=== PATIENT | male | born 1965 | race Hispanic/Latino ===

== ENCOUNTER → 2017-03-03 | Outpatient (CLI) | payer OTHER ==
[~2017-03-03] MED LIST: LIDOCAINE VISC 2% SOLN 15 ML UDC ONE
== END ==
LOC: WCC 09:56
PROVIDERS: ATTEND Family Medicine Adult Medicine
DX: T86.821 Skin graft (allograft) (autograft) failure (principal); E11.65 Type 2 diabetes mellitus with hyperglycemia; S81.802A Unspecified open wound, left lower leg, initial encounter; R60.0 Localized edema; I87.2 Venous insufficiency (chronic) (peripheral); B96.89 Other specified bacterial agents as the cause of diseases classified elsewhere; I10 Essential (primary) hypertension; W20.8XXA Other cause of strike by thrown, projected or falling object, initial encounter

== ENCOUNTER → 2017-03-19 | Outpatient (CLI) | payer OTHER | LOC: WCC 10:02 | PROVIDERS: ATTEND Family Medicine Adult Medicine | DX: T86.821 Skin graft (allograft) (autograft) failure (principal); E11.65 Type 2 diabetes mellitus with hyperglycemia; R60.0 Localized edema; S81.802A Unspecified open wound, left lower leg, initial encounter; B96.89 Other specified bacterial agents as the cause of diseases classified elsewhere; I10 Essential (primary) hypertension; I87.2 Venous insufficiency (chronic) (peripheral); R23.8 Other skin changes; S80.812A Abrasion, left lower leg, initial encounter; W20.8XXA Other cause of strike by thrown, projected or falling object, initial encounter | CPT/HCPCS: 15271; 29581; Q4131 ==

== ENCOUNTER → 2017-03-26 | Outpatient (CLI) | payer OTHER | LOC: WCC 09:22 | PROVIDERS: ATTEND Family Medicine Adult Medicine | DX: T86.821 Skin graft (allograft) (autograft) failure (principal); E11.65 Type 2 diabetes mellitus with hyperglycemia; S81.802A Unspecified open wound, left lower leg, initial encounter; S80.812A Abrasion, left lower leg, initial encounter; R60.0 Localized edema; I87.2 Venous insufficiency (chronic) (peripheral); R23.8 Other skin changes; B96.89 Other specified bacterial agents as the cause of diseases classified elsewhere; I10 Essential (primary) hypertension; W20.8XXA Other cause of strike by thrown, projected or falling object, initial encounter | CPT/HCPCS: 15271; 99212; Q4131 ==

== ENCOUNTER → 2017-04-02 | Outpatient (CLI) | payer OTHER | LOC: WCC 09:20 | PROVIDERS: ATTEND Family Medicine Adult Medicine | DX: T86.821 Skin graft (allograft) (autograft) failure (principal); E11.65 Type 2 diabetes mellitus with hyperglycemia; S81.802A Unspecified open wound, left lower leg, initial encounter; R60.0 Localized edema; S80.812A Abrasion, left lower leg, initial encounter; I87.2 Venous insufficiency (chronic) (peripheral); R23.8 Other skin changes; B96.5 Pseudomonas (aeruginosa) (mallei) (pseudomallei) as the cause of diseases classified elsewhere; B96.89 Other specified bacterial agents as the cause of diseases classified elsewhere; I10 Essential (primary) hypertension; W20.8XXA Other cause of strike by thrown, projected or falling object, initial encounter ==

== ENCOUNTER → 2017-04-09 | Outpatient (CLI) | payer OTHER | LOC: WCC 09:42 | PROVIDERS: ATTEND Family Medicine Adult Medicine | DX: T86.821 Skin graft (allograft) (autograft) failure (principal); E11.65 Type 2 diabetes mellitus with hyperglycemia; S81.802A Unspecified open wound, left lower leg, initial encounter; S80.812A Abrasion, left lower leg, initial encounter; R60.0 Localized edema; I87.2 Venous insufficiency (chronic) (peripheral); R23.8 Other skin changes; B96.5 Pseudomonas (aeruginosa) (mallei) (pseudomallei) as the cause of diseases classified elsewhere; B96.89 Other specified bacterial agents as the cause of diseases classified elsewhere; I10 Essential (primary) hypertension; W20.8XXA Other cause of strike by thrown, projected or falling object, initial encounter ==

== ENCOUNTER → 2017-04-16 | Outpatient (CLI) | payer OTHER | LOC: WCC 09:26 | PROVIDERS: ATTEND Family Medicine Adult Medicine | DX: T86.821 Skin graft (allograft) (autograft) failure (principal); E11.65 Type 2 diabetes mellitus with hyperglycemia; S80.812A Abrasion, left lower leg, initial encounter; S81.802A Unspecified open wound, left lower leg, initial encounter; R60.0 Localized edema; I87.2 Venous insufficiency (chronic) (peripheral); B96.5 Pseudomonas (aeruginosa) (mallei) (pseudomallei) as the cause of diseases classified elsewhere; B96.89 Other specified bacterial agents as the cause of diseases classified elsewhere; R23.8 Other skin changes; I10 Essential (primary) hypertension; W20.8XXA Other cause of strike by thrown, projected or falling object, initial encounter ==

== ENCOUNTER → 2017-04-23 | Outpatient (CLI) | payer OTHER | LOC: WCC 09:47 | PROVIDERS: ATTEND Family Medicine Adult Medicine | DX: T86.821 Skin graft (allograft) (autograft) failure (principal); E11.65 Type 2 diabetes mellitus with hyperglycemia; S81.802A Unspecified open wound, left lower leg, initial encounter; S80.812A Abrasion, left lower leg, initial encounter; R60.0 Localized edema; B96.5 Pseudomonas (aeruginosa) (mallei) (pseudomallei) as the cause of diseases classified elsewhere; B96.89 Other specified bacterial agents as the cause of diseases classified elsewhere; R23.8 Other skin changes; I10 Essential (primary) hypertension; I87.2 Venous insufficiency (chronic) (peripheral); W20.8XXA Other cause of strike by thrown, projected or falling object, initial encounter ==

== ENCOUNTER → 2017-04-30 | Outpatient (CLI) | payer OTHER | LOC: WCC 09:35 | PROVIDERS: ATTEND Family Medicine Adult Medicine | DX: T86.821 Skin graft (allograft) (autograft) failure (principal); E11.65 Type 2 diabetes mellitus with hyperglycemia; S81.802A Unspecified open wound, left lower leg, initial encounter; R60.0 Localized edema; R23.8 Other skin changes; I87.2 Venous insufficiency (chronic) (peripheral); B96.89 Other specified bacterial agents as the cause of diseases classified elsewhere; I10 Essential (primary) hypertension; W20.8XXA Other cause of strike by thrown, projected or falling object, initial encounter | CPT/HCPCS: 36415; 82948; 87071; 87075; 87186; 87205 ==

== ENCOUNTER → 2017-05-07 | Outpatient (CLI) | payer OTHER | LOC: WCC 10:13 | PROVIDERS: ATTEND Family Medicine Adult Medicine | DX: T86.821 Skin graft (allograft) (autograft) failure (principal); E11.65 Type 2 diabetes mellitus with hyperglycemia; B96.5 Pseudomonas (aeruginosa) (mallei) (pseudomallei) as the cause of diseases classified elsewhere; R60.0 Localized edema; S81.802A Unspecified open wound, left lower leg, initial encounter; B96.89 Other specified bacterial agents as the cause of diseases classified elsewhere; I10 Essential (primary) hypertension; I87.2 Venous insufficiency (chronic) (peripheral); R23.8 Other skin changes; W20.8XXA Other cause of strike by thrown, projected or falling object, initial encounter ==

== ENCOUNTER → 2017-05-14 | Outpatient (CLI) | payer OTHER | LOC: WCC 10:00 | PROVIDERS: ATTEND Family Medicine Adult Medicine | DX: T86.821 Skin graft (allograft) (autograft) failure (principal); E11.65 Type 2 diabetes mellitus with hyperglycemia; S81.802A Unspecified open wound, left lower leg, initial encounter; R60.0 Localized edema; I87.2 Venous insufficiency (chronic) (peripheral); R23.8 Other skin changes; B96.5 Pseudomonas (aeruginosa) (mallei) (pseudomallei) as the cause of diseases classified elsewhere; B96.89 Other specified bacterial agents as the cause of diseases classified elsewhere; I10 Essential (primary) hypertension; W20.8XXA Other cause of strike by thrown, projected or falling object, initial encounter ==

== ENCOUNTER → 2017-05-21 | Outpatient (CLI) | payer OTHER | LOC: EDBD → WCC 09:50 | PROVIDERS: ATTEND Family Medicine Adult Medicine | DX: T86.821 Skin graft (allograft) (autograft) failure (principal); E11.65 Type 2 diabetes mellitus with hyperglycemia; S81.802A Unspecified open wound, left lower leg, initial encounter; R60.0 Localized edema; I87.2 Venous insufficiency (chronic) (peripheral); R23.8 Other skin changes; B96.5 Pseudomonas (aeruginosa) (mallei) (pseudomallei) as the cause of diseases classified elsewhere; B96.89 Other specified bacterial agents as the cause of diseases classified elsewhere; I10 Essential (primary) hypertension; W20.8XXA Other cause of strike by thrown, projected or falling object, initial encounter | CPT/HCPCS: 36415; 82948 ==

== ENCOUNTER → 2017-05-28 | Outpatient (CLI) | payer OTHER | LOC: WCC 09:45 | PROVIDERS: ATTEND Family Medicine Adult Medicine | DX: T86.821 Skin graft (allograft) (autograft) failure (principal); E11.65 Type 2 diabetes mellitus with hyperglycemia; S81.802A Unspecified open wound, left lower leg, initial encounter; I87.2 Venous insufficiency (chronic) (peripheral); R60.0 Localized edema; B96.5 Pseudomonas (aeruginosa) (mallei) (pseudomallei) as the cause of diseases classified elsewhere; B96.89 Other specified bacterial agents as the cause of diseases classified elsewhere; I10 Essential (primary) hypertension; R23.8 Other skin changes; W20.8XXA Other cause of strike by thrown, projected or falling object, initial encounter ==

== ENCOUNTER → 2017-06-04 | Outpatient (CLI) | payer OTHER ==
[~2017-06-04] MED LIST changes: -LIDOCAINE VISC 2% SOLN 15 ML UDC ONE; +SODIUM CHLORIDE 0.9% INJ 250 ML BAG ONE
== END ==
LOC: WCC 09:29
PROVIDERS: ATTEND Family Medicine Adult Medicine
DX: T86.821 Skin graft (allograft) (autograft) failure (principal); E11.65 Type 2 diabetes mellitus with hyperglycemia; S81.802A Unspecified open wound, left lower leg, initial encounter; I87.2 Venous insufficiency (chronic) (peripheral); R60.0 Localized edema; R23.8 Other skin changes; B96.89 Other specified bacterial agents as the cause of diseases classified elsewhere; I10 Essential (primary) hypertension; W20.8XXA Other cause of strike by thrown, projected or falling object, initial encounter
CPT/HCPCS: 11042; 36415; 82948; J7050

== ENCOUNTER → 2017-06-11 | Outpatient (CLI) | payer OTHER | LOC: WCC 09:38 | PROVIDERS: ATTEND Family Medicine Adult Medicine | DX: T86.821 Skin graft (allograft) (autograft) failure (principal); E11.65 Type 2 diabetes mellitus with hyperglycemia; S81.802A Unspecified open wound, left lower leg, initial encounter; R60.0 Localized edema; I87.2 Venous insufficiency (chronic) (peripheral); B96.89 Other specified bacterial agents as the cause of diseases classified elsewhere; R23.8 Other skin changes; I10 Essential (primary) hypertension; W20.8XXA Other cause of strike by thrown, projected or falling object, initial encounter ==

== ENCOUNTER → 2017-06-18 | Outpatient (CLI) | payer OTHER ==
[~2017-06-18] MED LIST changes: +LIDOCAINE VISC 2% SOLN 15 ML UDC ONE; +MINERAL OIL/PETROLAT/GLYCERI 6OZ BTL ONE; -SODIUM CHLORIDE 0.9% INJ 250 ML BAG ONE
== END ==
LOC: WCC 10:09
PROVIDERS: ATTEND Family Medicine Adult Medicine
DX: T86.821 Skin graft (allograft) (autograft) failure (principal); E11.65 Type 2 diabetes mellitus with hyperglycemia; S81.802A Unspecified open wound, left lower leg, initial encounter; R60.0 Localized edema; I87.2 Venous insufficiency (chronic) (peripheral); R23.8 Other skin changes; B96.89 Other specified bacterial agents as the cause of diseases classified elsewhere; I10 Essential (primary) hypertension; W20.8XXA Other cause of strike by thrown, projected or falling object, initial encounter

== ENCOUNTER → 2017-06-25 | Outpatient (CLI) | payer OTHER | LOC: WCC 09:58 | PROVIDERS: ATTEND Family Medicine Adult Medicine | DX: T86.821 Skin graft (allograft) (autograft) failure (principal); E11.65 Type 2 diabetes mellitus with hyperglycemia; S81.802A Unspecified open wound, left lower leg, initial encounter; I87.2 Venous insufficiency (chronic) (peripheral); R60.0 Localized edema; R23.8 Other skin changes; W20.8XXA Other cause of strike by thrown, projected or falling object, initial encounter; I10 Essential (primary) hypertension; B96.89 Other specified bacterial agents as the cause of diseases classified elsewhere ==

== ENCOUNTER → 2017-07-02 | Outpatient (CLI) | payer OTHER | LOC: WCC 09:50 | PROVIDERS: ATTEND Family Medicine Adult Medicine | DX: T86.821 Skin graft (allograft) (autograft) failure (principal); E11.65 Type 2 diabetes mellitus with hyperglycemia; S81.802A Unspecified open wound, left lower leg, initial encounter; R60.0 Localized edema; I87.2 Venous insufficiency (chronic) (peripheral); R23.8 Other skin changes; B96.89 Other specified bacterial agents as the cause of diseases classified elsewhere; I10 Essential (primary) hypertension; W20.8XXA Other cause of strike by thrown, projected or falling object, initial encounter ==

== ENCOUNTER → 2017-07-09 | Outpatient (CLI) | payer OTHER ==
[~2017-07-09] MED LIST changes: -MINERAL OIL/PETROLAT/GLYCERI 6OZ BTL ONE
== END ==
LOC: WCC 09:58
PROVIDERS: ATTEND Family Medicine Adult Medicine
DX: T86.821 Skin graft (allograft) (autograft) failure (principal); E11.65 Type 2 diabetes mellitus with hyperglycemia; S81.802A Unspecified open wound, left lower leg, initial encounter; R60.0 Localized edema; I87.2 Venous insufficiency (chronic) (peripheral); B96.89 Other specified bacterial agents as the cause of diseases classified elsewhere; R23.8 Other skin changes; I10 Essential (primary) hypertension; W20.8XXA Other cause of strike by thrown, projected or falling object, initial encounter

== ENCOUNTER → 2017-07-16 | Outpatient (CLI) | payer OTHER | LOC: WCC 09:27 | PROVIDERS: ATTEND Family Medicine Adult Medicine | DX: T86.821 Skin graft (allograft) (autograft) failure (principal); E11.65 Type 2 diabetes mellitus with hyperglycemia; S81.802A Unspecified open wound, left lower leg, initial encounter; I87.2 Venous insufficiency (chronic) (peripheral); R60.0 Localized edema; R23.8 Other skin changes; B96.89 Other specified bacterial agents as the cause of diseases classified elsewhere; I10 Essential (primary) hypertension; W20.8XXA Other cause of strike by thrown, projected or falling object, initial encounter | CPT/HCPCS: 36415; 82948 ==

== ENCOUNTER → 2017-07-29 | Outpatient (CLI) | payer OTHER | LOC: WCC 09:10 | PROVIDERS: ATTEND Family Medicine Adult Medicine | DX: T86.821 Skin graft (allograft) (autograft) failure (principal); E11.65 Type 2 diabetes mellitus with hyperglycemia; S81.802A Unspecified open wound, left lower leg, initial encounter; R60.0 Localized edema; I87.2 Venous insufficiency (chronic) (peripheral); R23.8 Other skin changes; B96.89 Other specified bacterial agents as the cause of diseases classified elsewhere; I10 Essential (primary) hypertension; W20.8XXA Other cause of strike by thrown, projected or falling object, initial encounter ==

== ENCOUNTER → 2017-07-30 | Outpatient (CLI) | payer OTHER ==
[~2017-07-30] MED LIST changes: -LIDOCAINE VISC 2% SOLN 15 ML UDC ONE; +MINERAL OIL/PETROLAT/GLYCERI 6OZ BTL ONE
== END ==
LOC: WCC 09:26
PROVIDERS: ATTEND Family Medicine Adult Medicine
DX: T86.821 Skin graft (allograft) (autograft) failure (principal); E11.65 Type 2 diabetes mellitus with hyperglycemia; S81.802A Unspecified open wound, left lower leg, initial encounter; I87.2 Venous insufficiency (chronic) (peripheral); R60.0 Localized edema; R23.8 Other skin changes; I10 Essential (primary) hypertension; B96.89 Other specified bacterial agents as the cause of diseases classified elsewhere; W20.8XXA Other cause of strike by thrown, projected or falling object, initial encounter

== ENCOUNTER → 2017-08-06 | Outpatient (CLI) | payer OTHER ==
[~2017-08-06] MED LIST changes: +LIDOCAINE VISC 2% SOLN 15 ML UDC ONE; -MINERAL OIL/PETROLAT/GLYCERI 6OZ BTL ONE
== END ==
LOC: WCC 09:21
PROVIDERS: ATTEND Family Medicine Adult Medicine
DX: T86.821 Skin graft (allograft) (autograft) failure (principal); E11.65 Type 2 diabetes mellitus with hyperglycemia; S81.802A Unspecified open wound, left lower leg, initial encounter; I87.2 Venous insufficiency (chronic) (peripheral); R60.0 Localized edema; R23.8 Other skin changes; B96.89 Other specified bacterial agents as the cause of diseases classified elsewhere; I10 Essential (primary) hypertension; W20.8XXA Other cause of strike by thrown, projected or falling object, initial encounter
CPT/HCPCS: 36415; 82948

== ENCOUNTER → 2017-08-13 | Outpatient (CLI) | payer OTHER | LOC: WCC 09:41 | PROVIDERS: ATTEND Family Medicine Adult Medicine | DX: T86.821 Skin graft (allograft) (autograft) failure (principal); E11.65 Type 2 diabetes mellitus with hyperglycemia; S81.802A Unspecified open wound, left lower leg, initial encounter; R60.0 Localized edema; I87.2 Venous insufficiency (chronic) (peripheral); R23.8 Other skin changes; B96.89 Other specified bacterial agents as the cause of diseases classified elsewhere; I10 Essential (primary) hypertension; W20.8XXA Other cause of strike by thrown, projected or falling object, initial encounter ==

== ENCOUNTER → 2017-08-20 | Outpatient (CLI) | payer OTHER | LOC: WCC 08:56 | PROVIDERS: ATTEND Family Medicine Adult Medicine | DX: T86.821 Skin graft (allograft) (autograft) failure (principal); E11.65 Type 2 diabetes mellitus with hyperglycemia; S81.802A Unspecified open wound, left lower leg, initial encounter; R60.0 Localized edema; I87.2 Venous insufficiency (chronic) (peripheral); R23.8 Other skin changes; B96.89 Other specified bacterial agents as the cause of diseases classified elsewhere; I10 Essential (primary) hypertension; W20.8XXA Other cause of strike by thrown, projected or falling object, initial encounter | CPT/HCPCS: 87071; 87075; 87205; 88302 ==

== ENCOUNTER → 2017-08-27 | Outpatient (CLI) | payer OTHER | LOC: WCC 09:20 | PROVIDERS: ATTEND Family Medicine Adult Medicine | DX: T86.821 Skin graft (allograft) (autograft) failure (principal); E11.65 Type 2 diabetes mellitus with hyperglycemia; S81.802A Unspecified open wound, left lower leg, initial encounter; R60.0 Localized edema; I87.2 Venous insufficiency (chronic) (peripheral); B96.89 Other specified bacterial agents as the cause of diseases classified elsewhere; R23.8 Other skin changes; I10 Essential (primary) hypertension; W20.8XXA Other cause of strike by thrown, projected or falling object, initial encounter ==

== ENCOUNTER → 2017-09-10 | Outpatient (CLI) | payer OTHER ==
[~2017-09-10] MED LIST changes: +MINERAL OIL/PETROLAT/GLYCERI 6OZ BTL ONE
== END ==
LOC: WCC 10:05
PROVIDERS: ATTEND Family Medicine Adult Medicine
DX: T86.821 Skin graft (allograft) (autograft) failure (principal); E11.65 Type 2 diabetes mellitus with hyperglycemia; S81.802A Unspecified open wound, left lower leg, initial encounter; R60.0 Localized edema; B96.89 Other specified bacterial agents as the cause of diseases classified elsewhere; I10 Essential (primary) hypertension; I87.2 Venous insufficiency (chronic) (peripheral); R23.8 Other skin changes; W20.8XXA Other cause of strike by thrown, projected or falling object, initial encounter

== ENCOUNTER → 2017-09-17 | Outpatient (CLI) | payer OTHER | LOC: WCC 10:52 | PROVIDERS: ATTEND Family Medicine Adult Medicine | DX: T86.821 Skin graft (allograft) (autograft) failure (principal); E11.65 Type 2 diabetes mellitus with hyperglycemia; S81.802A Unspecified open wound, left lower leg, initial encounter; R60.0 Localized edema; B96.89 Other specified bacterial agents as the cause of diseases classified elsewhere; I87.2 Venous insufficiency (chronic) (peripheral); R23.8 Other skin changes; I10 Essential (primary) hypertension; W20.8XXA Other cause of strike by thrown, projected or falling object, initial encounter ==

== ENCOUNTER → 2017-09-24 | Outpatient (CLI) | payer OTHER | LOC: EDBD → WCC 12:39 | PROVIDERS: ATTEND Family Medicine Adult Medicine | DX: T86.821 Skin graft (allograft) (autograft) failure (principal); E11.65 Type 2 diabetes mellitus with hyperglycemia; S81.802A Unspecified open wound, left lower leg, initial encounter; R60.0 Localized edema; B96.89 Other specified bacterial agents as the cause of diseases classified elsewhere; I87.2 Venous insufficiency (chronic) (peripheral); R23.8 Other skin changes; I10 Essential (primary) hypertension; W20.8XXA Other cause of strike by thrown, projected or falling object, initial encounter ==

== ENCOUNTER → 2017-09-25 | Outpatient (CLI) | payer OTHER ==
[~2017-09-25] MED LIST changes: +GADOBENATE DIMEGLUMINE 1 ML IV ONE; -LIDOCAINE VISC 2% SOLN 15 ML UDC ONE; -MINERAL OIL/PETROLAT/GLYCERI 6OZ BTL ONE
[2017-09-25 09:43] LABS: BLOOD UREA NITROGEN 21 mg/dL (7-26); BUN/CREATININE RATIO 22 (6-25); CREATININE, SERUM 0.95 mg/dL (0.72-1.25); EST GLOMERULAR FILTRATION RATE > 60 ML/MIN (60-)
--- NOTE | 2017-09-25 11:49 | Diagnostic Imaging Report ---
TECHNIQUE: Magnetic resonance imaging of the tibia-fibula was performed without and with injected contrast. 20 mL of MultiHance HISTORY: Wound infection COMPARISON: None available. FINDINGS: Sinus tract to the anterior cortex of the tibia axial image 48 with post infectious change throughout the distal tibia with sclerosis and cortical thickening from involucrum formation around the sequestrated medullary bone of the tibia. Mild bone marrow edema. Ossification between the tibia and fibula. No soft tissue abscess. Mild soft tissue edema and skin thickening of the anterior calf. Visualized tendons unremarkable. IMPRESSION: Sequela of prior/chronic osteomyelitis of the distal tibia. No acute osteomyelitis. No soft tissue abscess. Signed by: Dr. Duncan Finch M.D. on 09/25/2017 11:46 AM
== END ==
LOC: MRI 08:53
PROVIDERS: ATTEND Family Medicine Adult Medicine
DX: S81.802A Unspecified open wound, left lower leg, initial encounter (principal)
CPT/HCPCS: 36415; 82565; 84520

== ENCOUNTER → 2017-10-08 | Outpatient (CLI) | payer OTHER ==
[~2017-10-08] MED LIST changes: -GADOBENATE DIMEGLUMINE 1 ML IV ONE; +LIDOCAINE VISC 2% SOLN 15 ML UDC ONE; +MINERAL OIL/PETROLAT/GLYCERI 6OZ BTL ONE
== END ==
LOC: WCC 14:18
PROVIDERS: ATTEND Family Medicine Adult Medicine
DX: T86.821 Skin graft (allograft) (autograft) failure (principal); E11.65 Type 2 diabetes mellitus with hyperglycemia; M86.662 Other chronic osteomyelitis, left tibia and fibula; S81.802A Unspecified open wound, left lower leg, initial encounter; R60.0 Localized edema; R23.8 Other skin changes; I87.2 Venous insufficiency (chronic) (peripheral); B96.89 Other specified bacterial agents as the cause of diseases classified elsewhere; I10 Essential (primary) hypertension; W20.8XXA Other cause of strike by thrown, projected or falling object, initial encounter; Z01.810 Encounter for preprocedural cardiovascular examination; Z01.811 Encounter for preprocedural respiratory examination
CPT/HCPCS: 36415; 82948

== ENCOUNTER → 2017-10-15 | Outpatient (CLI) | payer OTHER | LOC: EDBD → WCC 13:12 | PROVIDERS: ATTEND Family Medicine Adult Medicine | DX: T86.821 Skin graft (allograft) (autograft) failure (principal); E11.65 Type 2 diabetes mellitus with hyperglycemia; M86.662 Other chronic osteomyelitis, left tibia and fibula; S81.802A Unspecified open wound, left lower leg, initial encounter; R60.0 Localized edema; I87.2 Venous insufficiency (chronic) (peripheral); R23.8 Other skin changes; B96.89 Other specified bacterial agents as the cause of diseases classified elsewhere; I10 Essential (primary) hypertension; W20.8XXA Other cause of strike by thrown, projected or falling object, initial encounter; Z01.810 Encounter for preprocedural cardiovascular examination; Z01.811 Encounter for preprocedural respiratory examination ==

== ENCOUNTER → 2017-10-19 | Outpatient (CLI) | payer OTHER ==
--- NOTE | 2017-10-19 09:29 | Diagnostic Imaging Report ---
PROCEDURE: Frontal and lateral views of the chest. COMPARISON: None. INDICATIONS: OPEN WOUND LEFT LEG FINDINGS: Lines/tubes: Right sided PICC with tip near the cavoatrial junction. Lungs: Moderate lung volumes. Linear subsegmental atelectasis at the lung bases. There is no evidence of pneumonia or pulmonary edema. Pleura: There is no pleural effusion or pneumothorax. Heart and mediastinum: The cardiomediastinal silhouette is unremarkable. Bones: No acute bony abnormality. Scattered degenerative changes. IMPRESSION: No evidence of pneumonia or pulmonary edema. Right sided PICC terminating near the cavoatrial junction. Dictated by: DIANN DIOP M.D. on 10/19/2017 at 9:34 Electronically approved by: DIANN DIOP M.D. on 10/19/2017 at 9:34
[2017-10-19 14:03] LABS: ABG PH 7.39 (7.31-7.41)
[2017-10-19 14:04] LABS: ABG HCO3 23 mmol/L (23-28); ABG PCO2 38 mmHg (41-51); ABG PO2 63 mmHg (80-105)
== END ==
LOC: RAD 08:36
PROVIDERS: ATTEND Family Medicine Adult Medicine
DX: Z01.810 Encounter for preprocedural cardiovascular examination (principal); Z01.811 Encounter for preprocedural respiratory examination
CPT/HCPCS: 36415; 36600; 71046; 82805; 93005; 93306

== ENCOUNTER → 2017-10-29 | Outpatient (CLI) | payer OTHER | LOC: EDBD → WCC 14:07 | PROVIDERS: ATTEND Family Medicine Adult Medicine | DX: T86.821 Skin graft (allograft) (autograft) failure (principal); E11.65 Type 2 diabetes mellitus with hyperglycemia; M86.662 Other chronic osteomyelitis, left tibia and fibula; S81.802A Unspecified open wound, left lower leg, initial encounter; R60.0 Localized edema; I87.2 Venous insufficiency (chronic) (peripheral); R23.8 Other skin changes; B96.89 Other specified bacterial agents as the cause of diseases classified elsewhere; I10 Essential (primary) hypertension; W20.8XXA Other cause of strike by thrown, projected or falling object, initial encounter; Z01.810 Encounter for preprocedural cardiovascular examination; Z01.811 Encounter for preprocedural respiratory examination ==

== ENCOUNTER → 2017-11-05 | Outpatient (CLI) | payer OTHER | LOC: WCC 09:41 | PROVIDERS: ATTEND Family Medicine Adult Medicine | DX: T86.821 Skin graft (allograft) (autograft) failure (principal); E11.65 Type 2 diabetes mellitus with hyperglycemia; M86.662 Other chronic osteomyelitis, left tibia and fibula; S81.802A Unspecified open wound, left lower leg, initial encounter; I87.2 Venous insufficiency (chronic) (peripheral); R60.0 Localized edema; R23.8 Other skin changes; B96.89 Other specified bacterial agents as the cause of diseases classified elsewhere; I10 Essential (primary) hypertension; W20.8XXA Other cause of strike by thrown, projected or falling object, initial encounter; Z01.810 Encounter for preprocedural cardiovascular examination; Z01.811 Encounter for preprocedural respiratory examination ==

== ENCOUNTER → 2017-11-12 | Outpatient (CLI) | payer OTHER | LOC: WCC 11:45 | PROVIDERS: ATTEND Family Medicine Adult Medicine | DX: T86.821 Skin graft (allograft) (autograft) failure (principal); E11.65 Type 2 diabetes mellitus with hyperglycemia; M86.662 Other chronic osteomyelitis, left tibia and fibula; S81.802A Unspecified open wound, left lower leg, initial encounter; R60.0 Localized edema; B96.89 Other specified bacterial agents as the cause of diseases classified elsewhere; I87.2 Venous insufficiency (chronic) (peripheral); R23.8 Other skin changes; I10 Essential (primary) hypertension; W20.8XXA Other cause of strike by thrown, projected or falling object, initial encounter; Z01.810 Encounter for preprocedural cardiovascular examination; Z01.811 Encounter for preprocedural respiratory examination ==

== ENCOUNTER → 2017-11-19 | Outpatient (CLI) | payer OTHER | LOC: WCC 09:48 | PROVIDERS: ATTEND Family Medicine Adult Medicine | DX: T86.821 Skin graft (allograft) (autograft) failure (principal); E11.65 Type 2 diabetes mellitus with hyperglycemia; M86.662 Other chronic osteomyelitis, left tibia and fibula; S81.802A Unspecified open wound, left lower leg, initial encounter; R60.0 Localized edema; R23.8 Other skin changes; I87.2 Venous insufficiency (chronic) (peripheral); I10 Essential (primary) hypertension; B96.89 Other specified bacterial agents as the cause of diseases classified elsewhere; W20.8XXA Other cause of strike by thrown, projected or falling object, initial encounter; Z01.810 Encounter for preprocedural cardiovascular examination; Z01.811 Encounter for preprocedural respiratory examination ==

== ENCOUNTER → 2017-11-26 | Outpatient (CLI) | payer OTHER | LOC: WCC 11:59 | PROVIDERS: ATTEND Family Medicine Adult Medicine | DX: T86.821 Skin graft (allograft) (autograft) failure (principal); E11.65 Type 2 diabetes mellitus with hyperglycemia; M86.662 Other chronic osteomyelitis, left tibia and fibula; S81.802A Unspecified open wound, left lower leg, initial encounter; I87.2 Venous insufficiency (chronic) (peripheral); R60.0 Localized edema; R23.8 Other skin changes; I10 Essential (primary) hypertension; B96.89 Other specified bacterial agents as the cause of diseases classified elsewhere; W20.8XXA Other cause of strike by thrown, projected or falling object, initial encounter; Z01.810 Encounter for preprocedural cardiovascular examination; Z01.811 Encounter for preprocedural respiratory examination ==

== ENCOUNTER → 2018-04-06 | Outpatient (CLI) | payer OTHER | LOC: WCC 15:06 | PROVIDERS: ATTEND Family Medicine Adult Medicine | DX: T86.821 Skin graft (allograft) (autograft) failure (principal); M86.662 Other chronic osteomyelitis, left tibia and fibula; E11.65 Type 2 diabetes mellitus with hyperglycemia; S81.802A Unspecified open wound, left lower leg, initial encounter; I87.2 Venous insufficiency (chronic) (peripheral); R60.0 Localized edema; R23.8 Other skin changes; I10 Essential (primary) hypertension; B96.89 Other specified bacterial agents as the cause of diseases classified elsewhere; W20.8XXA Other cause of strike by thrown, projected or falling object, initial encounter; Z01.810 Encounter for preprocedural cardiovascular examination; Z01.811 Encounter for preprocedural respiratory examination ==